=== PATIENT | female | born 1935 | race Caucasian/White ===

== ENCOUNTER 2021-08-17 00:48 | Inpatient (IN) | payer OTHER ==
[~2021-08-17] VITALS: Ht 162.6 cm; Wt 55.6 kg
[2021-08-17] MEDS ORDERED: BUSPAR 10MG10 MG PO (19:25)
[2021-08-17] MEDS ORDERED: DELTA D310 MCG PO (19:26)
[2021-08-17] MEDS ORDERED: NEXIUM40 MG PO (19:27)
[2021-08-17] MEDS ORDERED: PAROXETINE HCL40 MG PO (19:34)
[2021-08-18 03:18] LABS: HEMOGLOBIN 14.3 gm/dl (12.3-15.3); RED BLOOD COUNT 4.41 M/UL (4.00-5.10); WHITE BLOOD COUNT 9.1 K/UL (4.5-11.0)
[2021-08-18 03:52] LABS: BUN/CREATININE RATIO 13 (0-10)
[2021-08-18] MEDS ORDERED: VISTARIL 25 MG25 MG PO (19:28)
[2021-08-19 14:12] LABS: ANTI-CENTROMERE B ANTIBODIES <0.2 AI (0.0-0.9); ANTI-DNA (DS) AB QN 1 IU/mL (0-9); ANTI-JO-1 <0.2 AI (0.0-0.9); ANTICHROMATIN ANTIBODIES <0.2 AI (0.0-0.9); ANTIRIBOSOMAL P ANTIBODIES <0.2 AI (0.0-0.9); ANTISCLERODERMA-70 ANTIBODIES <0.2 AI (0.0-0.9); RNP ANTIBODIES <0.2 AI (0.0-0.9); SJOGREN'S ANTI-SS-A <0.2 AI (0.0-0.9); SJOGREN'S ANTI-SS-B <0.2 AI (0.0-0.9); SMITH ANTIBODIES <0.2 AI (0.0-0.9); SMITH/RNP ANTIBODIES <0.2 AI (0.0-0.9)
--- NOTE | 2021-08-20 13:52 | NUR ---
CALLED TO GIVE REPORT ON PATIENT TO NURSE ON . NO ANSWER
--- NOTE | 2021-08-20 14:11 | NUR ---
REPORT GIVEN TO LIA. PATIENT IS TO BE TRANSFERRED TO ROOM [phone]
[2021-08-21 06:46] LABS: HEMOGLOBIN 14.3 gm/dl (12.3-15.3); RED BLOOD COUNT 4.43 M/UL (4.00-5.10); WHITE BLOOD COUNT 6.5 K/UL (4.5-11.0)
[2021-08-21 07:11] LABS: BUN/CREATININE RATIO 7 (0-10)
[2021-08-21] MEDS ORDERED: PAROXETINE HCL20 MG PO (13:42)
[2021-08-21] MEDS ORDERED: KEPPRA500 MG PO (13:42)
[2021-08-21] MEDS ORDERED: NAMENDA 5 MG TAB5 MG PO (13:42)
== END 2021-08-21 15:08 | disposition home or self-care (01) | DRG 101 ==
LOC: CCU 00:48 → PROG CARE 19:27 → MED SURG 4 08-20 14:57
PROVIDERS: ADMIT Internal Medicine Infectious Disease
DX: G40.409 Other generalized epilepsy and epileptic syndromes, not intractable, without status epilepticus (principal); N30.00 Acute cystitis without hematuria; G93.40 Encephalopathy, unspecified; E87.2 Acidosis; Z20.822 Contact with and (suspected) exposure to COVID-19; G30.1 Alzheimer's disease with late onset; F02.80 Dementia in other diseases classified elsewhere, unspecified severity, without behavioral disturbance, psychotic disturbance, mood disturbance, and anxiety; E87.6 Hypokalemia; F41.9 Anxiety disorder, unspecified; K21.9 Gastro-esophageal reflux disease without esophagitis; F32.9 Major depressive disorder, single episode, unspecified; M81.0 Age-related osteoporosis without current pathological fracture; M19.90 Unspecified osteoarthritis, unspecified site; Z85.3 Personal history of malignant neoplasm of breast; Z90.49 Acquired absence of other specified parts of digestive tract; Z98.42 Cataract extraction status, left eye; Z98.41 Cataract extraction status, right eye; Z83.3 Family history of diabetes mellitus; Z80.9 Family history of malignant neoplasm, unspecified; Z79.82 Long term (current) use of aspirin; Z88.0 Allergy status to penicillin
CPT/HCPCS: 36415; 70551; 80053; 82607; 83516; 83605; 83735; 84443; 85025; 92526; 92610; 93005; 97162; 97167; J0696; J1650; J1953; J2060